=== PATIENT | male | born 1960 | race Two or more races ===

== ENCOUNTER 2020-04-18 05:50 | Day surgery (SDC) | payer OTHER ==
[~2020-04-18 05:50] MED LIST: ENALAPRIL-HCTZ1 EACH PO
[2020-04-18] MEDS ORDERED: COLACE100 MG PO (14:30)
[2020-04-18] MEDS ORDERED: NEURONTIN600 M1 PO (14:30)
[2020-04-18] MEDS ORDERED: PERCOCET 5-3251 EACH PO (14:30)
== END 2020-04-18 16:50 | disposition home or self-care (01) ==
LOC: CIR.AMB 05:50
PROVIDERS: ATTEND Surgery
DX: K40.90 Unilateral inguinal hernia, without obstruction or gangrene, not specified as recurrent (principal); Z20.828 Contact with and (suspected) exposure to other viral communicable diseases

== ENCOUNTER 2021-10-16 07:18 | Outpatient (CLI) | payer OTHER ==
[~2021-10-16 07:18] MED LIST changes: +COLACE100 MG PO; +NEURONTIN600 M1 PO; +PERCOCET 5-3251 EACH PO
== END 2021-10-16 07:26 | disposition home or self-care (01) ==
LOC: NUCLEAR 07:18
PROVIDERS: ATTEND Internal Medicine
DX: R94.6 Abnormal results of thyroid function studies (principal); E05.90 Thyrotoxicosis, unspecified without thyrotoxic crisis or storm; I10 Essential (primary) hypertension

== ENCOUNTER 2021-10-17 07:10 | Outpatient (CLI) | payer OTHER | END 2021-10-17 07:11 | disposition home or self-care (01) | LOC: NUCLEAR 07:10 | PROVIDERS: ATTEND Internal Medicine | DX: R94.6 Abnormal results of thyroid function studies (principal); E05.90 Thyrotoxicosis, unspecified without thyrotoxic crisis or storm; I10 Essential (primary) hypertension ==

== ENCOUNTER 2021-12-16 15:22 | Outpatient (CLI) | payer OTHER | END 2021-12-16 15:26 | disposition home or self-care (01) | LOC: LAB 15:22 | PROVIDERS: ATTEND Urology | DX: R97.20 Elevated prostate specific antigen [PSA] (principal) ==

== ENCOUNTER 2022-01-03 07:11 | Outpatient (CLI) | payer OTHER | END 2022-01-03 07:18 | disposition home or self-care (01) | LOC: SONOGRAMA 07:11 | PROVIDERS: ATTEND Urology | DX: R97.20 Elevated prostate specific antigen [PSA] (principal) ==

== ENCOUNTER 2023-07-27 12:04 | Outpatient (CLI) | payer OTHER | END 2023-07-27 12:06 | disposition home or self-care (01) | LOC: SONOGRAMA 12:04 | PROVIDERS: ATTEND Pathology Anatomic Pathology & Clinical Pathology | DX: D34 Benign neoplasm of thyroid gland (principal); E04.9 Nontoxic goiter, unspecified ==